=== PATIENT | male | born 1945 | race Two or more races ===

== ENCOUNTER 2022-06-29 23:01 | Inpatient (IN) | payer OTHER ==
[~2022-06-29] VITALS: Ht 175.3 cm; Wt 67.1 kg
--- NOTE | 2022-06-29 23:30 | NUR ---
PACIENTE REFIERE GERALDINE ME VACUNE CONTRA EL COVID E INFLUENZA Y HOY AL MEDICO MARY EMPECE CON VOMITOS 3 EPISODIOS, DEBILIDAD, FIEBRE Y FAMILIAR REFIERE ESTABA [place] INCOHERENCIA.
--- NOTE | 2022-06-30 01:13 | NUR ---
PACIENTE ALERTA Y ORIENTADO X3. SE ORIENTA A PACIENTE Y FAMILIAR SOBRE PROCEDIMIENTO A REALIZAR Y REFIRIO ENTENDER. SE REALIZA MUESTRAS DE LABORATORIO BAJO MEDIDAS ASEPTICAS. SE MIDE DXT 115MG/DL. SE REALIZA EKG ORDENADO POR MD A LAS 1:30AM. PENDIENTE CT DE MILLER ORDENADO POR MD Y NOTIFICADO A VILLA TECN[facility] DE CT.
--- NOTE | 2022-06-30 02:43 | NUR ---
PTE REEVALUADO POR MD TAN ORDENA TX MED SE EDUCA A PTE SOBRE EL MISMO Y REFIER ENTENDER. SE TIM MUESTRAS DE LAB BAJO MEDIDAS ACEPTICAS. PTE ES CANALIZADO EN BRAZO ELI CON ANGIO 18 Y 20 BAJO MEDIDAS ACEPTICAS. PTE CONECTADO A MONITOR CARDIACO ALEXA Y BAJO OBSERBACION POR CAMBIO EN COOMBS CONDICION.
--- NOTE | 2022-06-30 06:23 | NUR ---
PTE REEVALUADO POR MD TAN ORDENA TX MED SE EDUCA A PTE SOBRE EL MISMO Y REFIERE ENTENDER. SE TIM MUESTRAS DE LAB BAJO MEDIDAS ACEPTICAS. PTE PEND A RESULTADOS DE LAB Y EVALUAION DE MED INTERNA
--- NOTE | 2022-06-30 07:52 | NUR ---
SE RECIBE PACIENTE DEL TURNO ANTERIOR, EL MISMO SE ENCUENTRA UBICADO EN CAMA CON BARANDAS ELEVADAS POR PRECAUCION A CAIDAS, CONECTADO A MONITOR CARDIACO Y OXIMETRIA DE PULSO. PACIENTE SE ENCUENTRA ALERTA Y ORIENTADO X3, SE LE ORIENTA SOBRE CONTINUIAD DE TX DE ENFERMERIA Y VERBALIZA ENTENDER. SE OBSERVA PACIENTE CON CANULA NASAL A 2LT, BUEN PATRON RESPIRATORIO, CANALIZADO X2 EN BRAZO MICHAEL, AMBAS CANALIZACIONES PATENTES, LIBRES DE EDEMA Y ERITEMA, BAJANOD 0.95 NSS DE 1000ML A 75ML/HR Y TRIDIL BAJANOD POR MAQUINA DE IV PUMP A 1 ML/HR. SE MONITOREAN S/V Y SE MANTIENE PACIENTE BAJO OBSERVACION POR CAMBIOS EN TRATAMIENTO MEDICO.
--- NOTE | 2022-06-30 16:00 | NUR ---
MASCULINO DE 77 ANOS ES RECIBIDO POR TURNO ANTERIOR. PTE SE OBSERVA A/O X3. PTE SE LE REALIZA LAB PENDIENTE. PTE NO LE JONES LLEGADO MED PEDIDOS A FARMACIA. PTE TIENE VENA PATENTES Y TIENE DOS CANALIZACIONES DE ANGIO 18 EN BRAZO LA Y RA. TIENE BAJANDO TRIDIL A 1ML/HR Y 0.9 NSS DE 1000 @75ML/HR.
== END 2022-07-08 10:30 | disposition home or self-care (01) | DRG 682 ==
LOC: ER 23:01 → ICU-2 06-30 18:52 → MEDJ 07-02 11:43
PROVIDERS: ADMIT Internal Medicine; ATTEND Internal Medicine
PROC: BW28ZZZ Computerized Tomography (CT Scan) of Head (ICD-10-PCS; principal; 2022-06-30)
PROC: B246ZZZ Ultrasonography of Right and Left Heart (ICD-10-PCS; 2022-06-30)
PROC: BW21ZZZ Computerized Tomography (CT Scan) of Abdomen and Pelvis (ICD-10-PCS; 2022-06-30)
PROC: 4A12X4Z Monitoring of Cardiac Electrical Activity, External Approach (ICD-10-PCS; 2022-07-02)
DX: N18.2 Chronic kidney disease, stage 2 (mild) (principal); G92.8 Other toxic encephalopathy; I24.9 Acute ischemic heart disease, unspecified; R78.81 Bacteremia; N39.0 Urinary tract infection, site not specified; I45.10 Unspecified right bundle-branch block; R41.0 Disorientation, unspecified; D50.8 Other iron deficiency anemias; B96.29 Other Escherichia coli [E. coli] as the cause of diseases classified elsewhere; R11.11 Vomiting without nausea; R33.8 Other retention of urine; C61 Malignant neoplasm of prostate; M25.561 Pain in right knee; Z20.822 Contact with and (suspected) exposure to COVID-19